=== PATIENT | male | born 1995 | race Caucasian/White ===

== ENCOUNTER 2018-01-10 11:24 | Emergency (ER) | payer OTHER ==
[~2018-01-10] VITALS: Ht 177.8 cm; Wt 79.4 kg
[2018-01-10] MEDS ORDERED: Ultram50 MG PO (12:16)
== END 2018-01-10 12:38 | disposition home or self-care (01) ==
LOC: ER 11:24
DX: S89.92XA Unspecified injury of left lower leg, initial encounter (principal); X58.XXXA Exposure to other specified factors, initial encounter; F17.200 Nicotine dependence, unspecified, uncomplicated
CPT/HCPCS: 99282

== ENCOUNTER 2018-06-27 10:44 | Emergency (ER) | payer OTHER ==
[~2018-06-27 10:44] MED LIST: Ultram50 MG PO
== END 2018-06-27 11:18 | disposition left against medical advice (07) ==
LOC: ER 10:44
DX: Z53.21 Procedure and treatment not carried out due to patient leaving prior to being seen by health care provider (principal)